=== PATIENT | male | born 1970 | race Caucasian/White ===

== ENCOUNTER → 2020-01-03 | Outpatient (CLI) | payer MEDICARE, OTHER ==
[2020-01-03 14:25] VITALS: BP 154/99; PULSE 65; TEMP 98.1; BMI 67.1
--- NOTE | 2020-01-03 14:56 | P.HPBAR ---
Bariatric H&P - History & Physicial H&P Date: 01/03/20 History & Physicial: Visit/CC: initial visit Patient initial contact: Initial weight: Initial weight in pounds: Height: 6 ft 3 in Initial BMI: Last weight: Current weight: 243.579 kg Current weight in pounds: 537.00 Current BMI: 67.1 [place] body weight (based on NIH guidelines): 88.904 kg Excess body weight loss: The patient is a 49 year-old M who presents for Bariatric Assessment. Patient presents for presurgical consultation. Patient's had lifetime problems obesity. His BMI 67. Past Medical History Past Medical History: Atrial Fibrillation, Asthma, Cancer, GERD/Reflux, Hyper tension Additional Past Medical History / Comment(s): Cancer - glyoblastoma; hinson white parkinsons History of Any Multi-Drug Resistant Organisms: None Reported Past Surgical History: Heart Catheterization Additional Past Surgical History / Comment(s): brain surgery - tumor removal Past Anesthesia/Blood Transfusion Reactions: No Reported Reaction Past Psychological History: No Psychological Hx Reported Smoking Status: Never smoker Past Alcohol Use History: None Reported Past Drug Use History: Marijuana Additional Drug Use History / Comment(s): chew tobacco Surgical - Exam Vital Signs Temp Pulse BP 98.1 F 65 154/99 01/03/20 13:54 01/03/20 13:54 01/03/20 13:54 - General well developed, well nourished, no distress - Eyes PERRL - ENT normal pinna - Neck no masses - Respiratory normal expansion - Cardiovascular Rhythm: regular - Abdomen Abdomen: soft, non tender Bariatric Assessment & Plan Plan: Morbid obesity, BMI 67. Patient will be scheduled for EGD. He'll follow-up after this is an performed. Bariatric Checklist Checklist: Plan: Checklist: EGD: 1. Hiatal hernia: 2. H. Pylori: HgbA1c: Vitamin D: Smoking: Primary care physician referral: Dr. Rg Psychiatry clearance: Cardiology clearance: Sleep study: Diet journal: VTE risk score: VTE risk level: Rehab needs at discharge:
== END | disposition home or self-care (01) ==
LOC: BARWHC3 13:37
PROVIDERS: ATTEND Surgery
DX: E66.01 Morbid (severe) obesity due to excess calories (principal); Z68.44 Body mass index [BMI] 60.0-69.9, adult
CPT/HCPCS: 99201

== ENCOUNTER 2020-04-27 08:29 | Day surgery (SDC) | payer MEDICARE, OTHER ==
[2020-04-24 18:08] VITALS: BMI 62.4
[~2020-04-27 08:29] MED LIST: LACTATED RINGERS 1,000 ML IV SCH; LIDOCAINE 1% (10MG/ML) FOR IV START INTRADERMA PRN
[2020-04-27 09:06] VITALS: RESP 18; TEMP 97.2
[2020-04-27] MEDS ORDERED: PROPOFOL 10 MG/ML 20 ML VIAL IV ONE (09:47)
--- NOTE | 2020-04-27 09:49 | P.GSHP ---
History of Present Illness H&P Date: 04/27/20 Chief Complaint: Morbid obesity, GERD Is a 50-year-old male undergoing workup for sleeve gastrectomy. Patient morbidly obese. His BMI 67. He is also had GERD symptoms. 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 a-fib 2013, swelling feet & ankles, fell recently & hit head-denies LOC, thinks he fell asleep because was late, has insomnia, only sleeps 4 hours/night, supposed to use CPAP History of Any Multi-Drug Resistant Organisms: None Reported Past Surgical History: Heart Catheterization Additional Past Surgical History / Comment(s): brain surgery - tumor removal Past Anesthesia/Blood Transfusion Reactions: No Reported Reaction Smoking Status: Never smoker Medications and Allergies Home Medications Medication Instructions Recorded Confirmed Type Albuterol Sulfate [Ventolin HFA] 1 - 2 puff INHALATION Q6H PRN 01/03/20 04/24/20 History Amiodarone [Cordarone] 200 mg PO DAILY 01/03/20 04/24/20 History Cholecalciferol [Vitamin D3 (25 2,000 unit PO DAILY 01/03/20 04/27/20 History Mcg = 1000 Iu)] HYDROcodone/APAP 10-325MG [[place] 1 tab PO Q4-6H PRN 01/03/20 04/24/20 History 10-325] Metoprolol Tartrate [Lopressor] 100 mg PO BID 01/03/20 04/24/20 History levETIRAcetam 500 mg PO BID 01/03/20 04/24/20 History Furosemide [Lasix] 20 mg PO DAILY 04/24/20 04/27/20 History Potassium Chloride [Klor-Con 20] 20 meq PO DAILY 04/24/20 04/27/20 History diphenhydrAMINE [Benadryl] 25 mg PO BID PRN 04/24/20 04/24/20 History Allergies Allergy/AdvReac Type Severity Reaction Status Date / Time enoxaparin [From Lovenox] Allergy Rash/Hives Verified 04/24/20 16:38 Surgical - Exam Vital Signs Temp Pulse Resp BP Pulse Ox 97.2 F L 78 18 126/81 97 04/27/20 09:04 04/27/20 09:04 04/27/20 09:04 04/27/20 09:04 04/27/20 09:04 - General well developed, well nourished, no distress - Eyes PERRL - ENT normal pinna - Neck no masses - Respiratory normal expansion - Cardiovascular Rhythm: regular - Abdomen Abdomen: soft, non tender Assessment and Plan Assessment: Morbid obesity, BMI 67 GERD We'll perform EGD.
--- NOTE | 2020-04-27 10:02 | P.OP ---
Date of Procedure: 04/27/20 Preoperative Diagnosis: Morbid obesity, BMI 67 GERD Postoperative Diagnosis: Morbid obesity Gastritis Procedure(s) Performed: EGD Anesthesia: MAC Surgeon: Sandro Prince Pathology: other (Antrum) Condition: stable Disposition: PACU Description of Procedure: The patient's placed on the endoscopy table in the lateral position. He received IV sedation. The gastroscope placed oropharynx passed in the esophagus into the stomach. Scope was placed through the pylorus. The first and second portion of the duodenum appeared normal. Scope was then brought back the antrum and this appeared mildly inflamed. A biopsies performed. Scope was retroflexed and the remainder of the stomach appeared normal. The GE junction was at 40 cm is. Air was no significant hiatal hernia. The distal esophagus. Normal. The proximal esophagus. Normal. Scope was withdrawn for patient.
[2020-04-27 10:21] VITALS: BP 128/70; PULSE 76
== END 2020-04-27 10:35 | disposition home or self-care (01) ==
LOC: ORWHC2ENDO 08:29
PROVIDERS: ATTEND Surgery
DX: K29.70 Gastritis, unspecified, without bleeding (principal); K31.9 Disease of stomach and duodenum, unspecified; K21.9 Gastro-esophageal reflux disease without esophagitis; E66.01 Morbid (severe) obesity due to excess calories; Z68.44 Body mass index [BMI] 60.0-69.9, adult; I48.91 Unspecified atrial fibrillation; J45.909 Unspecified asthma, uncomplicated; I10 Essential (primary) hypertension; I45.6 Pre-excitation syndrome; R60.0 Localized edema; G47.00 Insomnia, unspecified; G47.33 Obstructive sleep apnea (adult) (pediatric); Z91.19 Patient's noncompliance with other medical treatment and regimen; Z85.841 Personal history of malignant neoplasm of brain; Z92.21 Personal history of antineoplastic chemotherapy; Z92.3 Personal history of irradiation; Z98.890 Other specified postprocedural states; Z79.891 Long term (current) use of opiate analgesic; Z79.899 Other long term (current) drug therapy; Z88.8 Allergy status to other drugs, medicaments and biological substances
CPT/HCPCS: 43239; 88305; J2704; 93005

== ENCOUNTER 2020-06-11 20:14 | Emergency (ER) | payer MEDICARE, OTHER ==
[2020-06-11 21:14] VITALS: TEMP 99.1
--- NOTE | 2020-06-11 21:24 | ED ---
SOB HPI - General Chief Complaint: Shortness of Breath Stated Complaint: Dizzines,SOB,Fever Time Seen by Provider: 06/11/20 21:01 Source: patient Mode of arrival: wheelchair Limitations: physical limitation - History of Present Illness Initial Comments: This patient is a 50-year-old man who presents here to be evaluated for shortness of breath and generalized weakness. The patient states she has been feeling short of breath for approximately a week so it became much worse tonight. The patient had been driving back from the [facility] part of the [facility] where he had gone for an automotive repair. As he was getting back into the area he had gotten out of his truck to urinate but then had a very hard time getting back in due to shortness of breath and weakness. Patient denies chest pain. He has not noticed change in urination or bowel movements. He does acknowledge bilateral leg edema. The patient had been admitted to [facility] within the past couple weeks where he reportedly had over 100 pounds of fluid diuresed, now he states that he feels like he has gained much of it back. MD Complaint: shortness of breath Onset/Timin -: week(s) Severity scale (1-10): 0 Improves With: nothing Worsens With: exertion Known History Of: congestive heart failure - Related Data Home Medications Medication Instructions Recorded Confirmed Albuterol Sulfate [Ventolin HFA] 1 - 2 puff INHALATION RT-QID PRN 01/03/20 06/11/20 Amiodarone [Cordarone] 200 mg PO DAILY 01/03/20 06/11/20 HYDROcodone/APAP 10-325MG [[place] 1 tab PO Q4-6H PRN 01/03/20 06/11/20 10-325] Metoprolol Tartrate [Lopressor] 100 mg PO BID 01/03/20 06/11/20 levETIRAcetam 500 mg PO BID 01/03/20 06/11/20 Furosemide [Lasix] 20 mg PO DAILY PRN 04/24/20 06/11/20 Potassium Chloride [Klor-Con 20] 20 meq PO DAILY PRN 04/24/20 06/11/20 diphenhydrAMINE [Benadryl] 25 mg PO BID PRN 04/24/20 06/11/20 Allergies Allergy/AdvReac Type Severity Reaction Status Date / Time enoxaparin [From Lovenox] Allergy Rash/Hives Verified 06/11/20 21:59 Review of Systems ROS Statement: Those systems with pertinent positive or pertinent negative responses have been documented in the HPI. ROS Other: All systems not noted in ROS Statement are negative. Constitutional: Reports: weakness. Denies: fever, chills Respiratory: Reports: dyspnea. Denies: cough, wheezes, hemoptysis Cardiovascular: Reports: dyspnea on exertion, edema. Denies: chest pain, palpitations, syncope Gastrointestinal: Denies: abdominal pain, vomiting, diarrhea Genitourinary: Denies: dysuria, frequency, hematuria Musculoskeletal: Denies: back pain Skin: Denies: rash Neurological: Denies: headache, weakness, numbness Past Medical History Past Medical History: Atrial Fibrillation, Asthma, Cancer, GERD/Reflux, Hypertension, Sleep Apnea/CPAP/BIPAP Additional Past Medical History / Comment(s): Cancer - glioblastoma 2014-surg., chemo & radiation, hinson parkinson white syndrome, past hx. a-fib 2013, swelling feet & ankles, fell recently & hit head-denies LOC, thinks he fell asleep because was late, has insomnia, only sleeps 4 hours/night, supposed to use CPAP History of Any Multi-Drug Resistant Organisms: None Reported Past Surgical History: Heart Catheterization Additional Past Surgical History / Comment(s): brain surgery - tumor removal Past Anesthesia/Blood Transfusion Reactions: No Reported Reaction Past Psychological History: No Psychological Hx Reported Smoking Status: Never smoker Past Alcohol Use History: None Reported Past Drug Use History: None Reported General Exam Limitations: physical limitation General appearance: alert, obese Head exam: Present: atraumatic, normocephalic Eye exam: Present: normal appearance. Absent: scleral icterus, conjunctival injection ENT exam: Present: normal oropharynx Neck exam: Present: normal inspection Respiratory exam: Present: respiratory distress (Mild tachypnea), rales (Bases). Absent: wheezes, rhonchi, stridor, accessory muscle use Cardiovascular Exam: Present: regular rate, irregular rhythm, normal heart sounds. Absent: systolic murmur, diastolic murmur, rubs, gallop GI/Abdominal exam: Present: soft. Absent: distended, tenderness, guarding, rebound, rigid Extremities exam: Present: normal capillary refill, pedal edema (Chronic stasis changes bilaterally). Absent: calf tenderness Neurological exam: Present: alert Skin exam: Present: warm, dry, intact, other (Chronic stasis changes bilaterally) Course Vital Signs 06/11/20 06/11/20 21:11 21:22 Temperature 99.1 F Pulse Rate 59 L Respiratory 22 26 H Rate Blood Pressure 123/73 O2 Sat by Pulse 96 Oximetry Medical Decision Making - Lab Data Result diagrams: 06/11/20 21:24 06/11/20 21:24 Lab Results 06/11/20 06/11/20 06/11/20 Range/Units 21:24 21:24 21:24 WBC 9.2 (3.8-10.6) k/uL RBC 4.01 L (4.30-5.90) m/uL Hgb 13.5 (13.0-17.5) gm/dL Hct 39.4 (39.0-53.0) % MCV 98.3 (80.0-100.0) fL MCH 33.7 (25.0-35.0) pg MCHC 34.3 (31.0-37.0) g/dL RDW 13.6 (11.5-15.5) % Plt Count 328 (150-450) k/uL MPV 6.8 Neutrophils % 73 % Lymphocytes % 17 % Monocytes % 6 % Eosinophils % 2 % Basophils % 1 % Neutrophils # 6.7 (1.3-7.7) k/uL Lymphocytes # 1.5 (1.0-4.8) k/uL Monocytes # 0.6 (0-1.0) k/uL Eosinophils # 0.2 (0-0.7) k/uL Basophils # 0.1 (0-0.2) k/uL PT 10.2 (9.0-12.0) sec INR 0.9 (<1.2) APTT 20.7 L (22.0-30.0) sec Sodium 139 (137-145) mmol/L Potassium 4.8 (3.5-5.1) mmol/L Chloride 102 (98-107) mmol/L Carbon Dioxide 28 (22-30) mmol/L Anion Gap 9 mmol/L BUN 14 (9-20) mg/dL Creatinine 0.86 (0.66-1.25) mg/dL Est GFR (CKD-EPI)AfAm >90 (>60 ml/min/1.73 sqM) Est GFR (CKD-EPI)NonAf >90 (>60 ml/min/1.73 sqM) Glucose 104 H (74-99) mg/dL Plasma Lactic Acid Reji (0.7-2.0) mmol/L Calcium 9.1 (8.4-10.2) mg/dL Magnesium 2.1 (1.6-2.3) mg/dL Total Bilirubin 1.1 (0.2-1.3) mg/dL AST 28 (17-59) U/L ALT 26 (4-49) U/L Alkaline Phosphatase 52 (38-126) U/L Troponin I (0.000-0.034) ng/mL NT-Pro-B Natriuret Pep pg/mL Total Protein 6.4 (6.3-8.2) g/dL Albumin 3.6 (3.5-5.0) g/dL Coronavirus (PCR) (Not Detectd) 06/11/20 06/11/20 06/11/20 Range/Units 21:24 21:24 21:24 WBC (3.8-10.6) k/uL RBC (4.30-5.90) m/uL Hgb (13.0-17.5) gm/dL Hct (39.0-53.0) % MCV (80.0-100.0) fL MCH (25.0-35.0) pg MCHC (31.0-37.0) g/dL RDW (11.5-15.5) % Plt Count (150-450) k/uL MPV Neutrophils % % Lymphocytes % % Monocytes % % Eosinophils % % Basophils % % Neutrophils # (1.3-7.7) k/uL Lymphocytes # (1.0-4.8) k/uL Monocytes # (0-1.0) k/uL Eosinophils # (0-0.7) k/uL Basophils # (0-0.2) k/uL PT (9.0-12.0) sec INR (<1.2) APTT (22.0-30.0) sec Sodium (137-145) mmol/L Potassium (3.5-5.1) mmol/L Chloride (98-107) mmol/L Carbon Dioxide (22-30) mmol/L Anion Gap mmol/L BUN (9-20) mg/dL Creatinine (0.66-1.25) mg/dL Est GFR (CKD-EPI)AfAm (>60 ml/min/1.73 sqM) Est GFR (CKD-EPI)NonAf (>60 ml/min/1.73 sqM) Glucose (74-99) mg/dL Plasma Lactic Acid Reji 2.6 H* (0.7-2.0) mmol/L Calcium (8.4-10.2) mg/dL Magnesium (1.6-2.3) mg/dL Total Bilirubin (0.2-1.3) mg/dL AST (17-59) U/L ALT (4-49) U/L Alkaline Phosphatase (38-126) U/L Troponin I <0.012 (0.000-0.034) ng/mL NT-Pro-B Natriuret Pep 744 pg/mL Total Protein (6.3-8.2) g/dL Albumin (3.5-5.0) g/dL Coronavirus (PCR) (Not Detectd) 06/11/20 Range/Units 22:19 WBC (3.8-10.6) k/uL RBC (4.30-5.90) m/uL Hgb (13.0-17.5) gm/dL Hct (39.0-53.0) % MCV (80.0-100.0) fL MCH (25.0-35.0) pg MCHC (31.0-37.0) g/dL RDW (11.5-15.5) % Plt Count (150-450) k/uL MPV Neutrophils % % Lymphocytes % % Monocytes % % Eosinophils % % Basophils % % Neutrophils # (1.3-7.7) k/uL Lymphocytes # (1.0-4.8) k/uL Monocytes # (0-1.0) k/uL Eosinophils # (0-0.7) k/uL Basophils # (0-0.2) k/uL PT (9.0-12.0) sec INR (<1.2) APTT (22.0-30.0) sec Sodium (137-145) mmol/L Potassium (3.5-5.1) mmol/L Chloride (98-107) mmol/L Carbon Dioxide (22-30) mmol/L Anion Gap mmol/L BUN (9-20) mg/dL Creatinine (0.66-1.25) mg/dL Est GFR (CKD-EPI)AfAm (>60 ml/min/1.73 sqM) Est GFR (CKD-EPI)NonAf (>60 ml/min/1.73 sqM) Glucose (74-99) mg/dL Plasma Lactic Acid Reji (0.7-2.0) mmol/L Calcium (8.4-10.2) mg/dL Magnesium (1.6-2.3) mg/dL Total Bilirubin (0.2-1.3) mg/dL AST (17-59) U/L ALT (4-49) U/L Alkaline Phosphatase (38-126) U/L Troponin I (0.000-0.034) ng/mL NT-Pro-B Natriuret Pep pg/mL Total Protein (6.3-8.2) g/dL Albumin (3.5-5.0) g/dL Coronavirus (PCR) Not Detected (Not Detectd) - EKG Data -: EKG Interpreted by Sd EKG shows normal: axis (Normal), intervals (QRS duration 110 ms, normal. QTc 481 ms, prolonged.), QRS complexes (Normal), ST-T waves (Normal) Rate: normal (Rate 86 bpm) Interpretation: other (Underlying rhythm is atrial fibrillation.) Disposition Clinical Impression: Congestive heart failure Disposition: HOME SELF-CARE Condition: Fair Instructions (If sedation given, give patient instructions): Heart Failure (ER) Is patient prescribed a controlled substance at d/c from ED?: No Referrals: Donald Rg PAC [Primary Care Provider] - 1-2 days
[2020-06-11 21:35] LABS: Basophils # (A) 0.1 k/uL (0-0.2); Basophils % (A) 1 %; Eosinophils # (A) 0.2 k/uL (0-0.7); Eosinophils % (A) 2 %; HCT 39.4 % (39.0-53.0); HGB 13.5 gm/dL (13.0-17.5); Lymphocytes # (A) 1.5 k/uL (1.0-4.8); Lymphocytes % (A) 17 %; MCH 33.7 pg (25.0-35.0); MCHC 34.3 g/dL (31.0-37.0); MCV 98.3 fL (80.0-100.0); Mean Platelet Volume 6.8; Monocytes # (A) 0.6 k/uL (0-1.0); Monocytes % (A) 6 %; Neutrophils # (A) 6.7 k/uL (1.3-7.7); Neutrophils % (A) 73 %; Platelet Count 328 k/uL (150-450); RBC 4.01 m/uL (4.30-5.90); RDW 13.6 % (11.5-15.5); WBC 9.2 k/uL (3.8-10.6)
[2020-06-11 21:45] LABS: ALT 26 U/L (4-49); AST 28 U/L (17-59); African American GFR (CKD) >90 (>60 ml/min/1.73 sqM); Albumin 3.6 g/dL (3.5-5.0); Alkaline Phosphatase 52 U/L (38-126); Anion Gap 9 mmol/L; Blood Urea Nitrogen 14 mg/dL (9-20); Calcium 9.1 mg/dL (8.4-10.2); Carbon Dioxide 28 mmol/L (22-30); Chloride 102 mmol/L (98-107); Glucose 104 mg/dL (74-99); Magnesium 2.1 mg/dL (1.6-2.3); Non-African American GFR(CKD) >90 (>60 ml/min/1.73 sqM); Potassium 4.8 mmol/L (3.5-5.1); Sodium 139 mmol/L (137-145); Total Bilirubin 1.1 mg/dL (0.2-1.3); Total Protein 6.4 g/dL (6.3-8.2)
[2020-06-11 21:50] LABS: INR 0.9 (<1.2); Prothrombin Time 10.2 sec (9.0-12.0)
--- NOTE | 2020-06-11 21:55 | XR ---
EXAMINATION TYPE: XR chest 1V portable DATE OF EXAM: 06/11/2020 COMPARISON: NONE HISTORY: Dyspnea. TECHNIQUE: Single frontal view of the chest is obtained. FINDINGS: There is mild interstitial edema with associated hazy opacity. No pleural effusion, or pne umothorax seen. The cardiac silhouette size is enlarged. The osseous structures are intact. IMPRESSION: Mild CHF.
[2020-06-11 22:27] LABS: Partial Thromboplastin Time 20.7 sec (22.0-30.0)
[2020-06-11] MEDS ORDERED: FUROSEMIDE 10 MG/ML 4 ML VIAL IV STA (23:30)
[2020-06-12 00:08] VITALS: BP 138/89; PULSE 73; RESP 20
[2020-06-12 00:15] LABS: Appearance,Urine Clear (Clear); Bilirubin,Urine Negative (Negative); Blood,Urine Negative (Negative); Color,Urine Yellow; Glucose,Urine (UA) Negative (Negative); Ketones,Urine Negative (Negative); Leukocyte Esterase,Urine Negative (Negative); Nitrite,Urine Negative (Negative); Protein,Urine Trace (Negative); Specific Gravity,Urine 1.024 (1.001-1.035); Urobilinogen,Urine <2.0 mg/dL (<2.0)
== END 2020-06-12 01:00 | disposition home or self-care (01) ==
LOC: EC 20:14
DX: I11.0 Hypertensive heart disease with heart failure (principal); I50.9 Heart failure, unspecified; I48.91 Unspecified atrial fibrillation; J45.909 Unspecified asthma, uncomplicated; K21.9 Gastro-esophageal reflux disease without esophagitis; G47.33 Obstructive sleep apnea (adult) (pediatric)
CPT/HCPCS: 36415; 93005; 83880; 80053; 83605 ×2; 83735; 84484; 85025; 85610; 85730; 81003; 87635; 71045; 99285; 96374; J1940